=== PATIENT | female | born 1930 | race Caucasian/White ===

== ENCOUNTER 2016-11-27 11:26 | Inpatient (IN) | payer OTHER, MEDICARE ==
[~2016-11-27] VITALS: Ht 154.9 cm; Wt 60.8 kg
[2016-11-27] VITALS (42 sets, daily range): BP systolic 118–188; BP diastolic 36–104; PULSE 74–148; RESP 16–30; TEMP 98–98.1; O2SAT 84–100
[~2016-11-27 11:26] MED LIST: ALBU17I INH; ATOR40TA49 PO; NIFE1TAB85 PO; WARF5 PO
[2016-11-27] MEDS ORDERED: SODIUM CHLORIDE 0.9% FLUSH 5 ML FLUSH IVF PRN (11:45)
--- NOTE | 2016-11-27 11:48 | PD ---
HPI Chief Complaint: Fall Time Seen by Provider: 11:29 Travel History International Travel<30 days: No Contact w/Intl Traveler<30days: No Traveled to known affect area: No History of Present Illness HPI 85yo F with PMH of HTN, HLD, Colon CA, CVA presents to the ED with multiple falls. Pt has dementia and is AAOx2 and denies any complaints or falls. As per EVAC, she was noted to have cough and bilateral lower ext swelling. Pt had been admitted 06/2015 for small occipital stroke. Denies any fever, cough, chest pain, sob, n/v, abdominal pain, weakness or numbness. PFSH Past Medical History Alzheimer's Disease: Yes Arthritis: Yes Asthma: No Autoimmune Disease: No Blood Disorders: Yes (HX BLOOD CLOTS) Cancer: Yes (COLON) Cardiovascular Problems: Yes High Cholesterol: Yes Chest Pain: No Congestive Heart Failure: No COPD: No Cerebrovascular Accident: No Deep Vein Thrombosis: Yes Endocrine: No Genitourinary: No Headaches: Yes Hypertension: Yes Immune Disorder: No Implanted Vascular Access Dvce: Yes Musculoskeletal: Yes Neurologic: Yes Psychiatric: No Reproductive: No Respiratory: Yes (COUGH) Immunizations Current: Yes Migraines: No Seizures: No Sleep Apnea: No Tetanus Vaccination: Unknown Influenza Vaccination: Yes ?: Not Past Surgical History Abdominal Surgery: Yes (COLON RESECTION) Cardiac Surgery: No Ear Surgery: No Endocrine Surgery: No Eye Surgery: No Genitourinary Surgery: No Gynecologic Surgery: Yes (FIBROIDS) Joint Replacement: Yes (LTK) Oral Surgery: No Thoracic Surgery: No Other Surgery: Yes Social History Alcohol Use: No Tobacco Use: No Substance Use: No Allergies-Medications (Allergen,Severity, Reaction): Coded Allergies: Dilaudid (Verified Allergy, Intermediate, UNKNOWN, 06/17/15) Penicillin (Verified Allergy, Intermediate, UNKNOWN, 06/17/15) Reported Meds & Prescriptions Reported Meds & Active Scripts Active Nifedipine Er (Nifedipine) 30 Mg Tabcr 30 Mg PO DAILY 30 Days Lipitor 40 Mg Tab (Atorvastatin Calcium) 40 Mg Tab 80 Mg PO DAILY Coumadin (Warfarin Sod) 5 Mg Tab 5 Mg PO DAILY@16 Proventil Mdi (Albuterol Sulfate) 17 Gm Aero 1 Puff INH Q4 PRN Review of Systems Except as stated in HPI: all other systems reviewed are Neg Physical Exam Narrative GENERAL: 85yo F in mild distress. SKIN: Warm and dry. HEAD: Atraumatic. Normocephalic. EYES: Pupils equal and round. No scleral icterus. No injection or drainage. ENT: No nasal bleeding or discharge. Mucous membranes pink and moist. NECK: Trachea midline. No JVD. CARDIOVASCULAR: Regular rate and rhythm. No murmur appreciated. RESPIRATORY: + accessory muscle use. Crackles bilaterally, right more than left. GASTROINTESTINAL: Abdomen soft, non-tender, nondistended. MUSCULOSKELETAL: No obvious deformities. No clubbing. No cyanosis. +Bilateral lower ext pitting edema. DP 2+. NEUROLOGICAL: Awake and alert. No obvious cranial nerve deficits. Motor grossly within normal limits. Normal speech. Data Data Last Documented VS Vital Signs Date Time Temp Pulse Resp B/P Pulse Ox O2 Delivery O2 Flow Rate FiO2 11/27/16 13:47 99 18 188/90 100 Nasal Cannula 4 11/27/16 13:40 30 11/27/16 11:34 98.0 Orders Complete Blood Count With Diff (11/27/16 11:35) Basic Metabolic Panel (Bmp) (11/27/16 11:35) B-Type Natriuretic Peptide (11/27/16 11:35) Act Partial Throm Time (Ptt) (11/27/16 11:35) Prothrombin Time / Inr (Pt) (11/27/16 11:35) Ckmb (Isoenzyme) Profile (11/27/16 11:35) Troponin I (11/27/16 11:35) Urinalysis - C+S If Indicated (11/27/16 11:35) Iv Access Insert/Monitor (11/27/16 11:35) Electrocardiogram (11/27/16 11:35) Ecg Monitoring (11/27/16 11:35) Oximetry (11/27/16 11:35) Oxygen Administration (11/27/16 11:35) Chest, Single Ap (11/27/16 11:35) Sodium Chloride 0.9% Flush (Ns Flush) (11/27/16 11:45) Cath For Specimen (11/27/16 12:31) Urine Culture (11/27/16 12:26) CKMB (11/27/16 12:39) CKMB% (11/27/16 12:39) Furosemide Inj (Lasix Inj) (11/27/16 13:30) Ciprofloxacin 400 Mg Premix (Cipro 400 M (11/27/16 13:30) Nitroglycerin-Dextrose Inj (Nitroglyceri (11/27/16 13:45) Arterial Blood Gas (Abg) (11/27/16 ) Admit Order (Ed Use Only) (11/27/16 13:54) Labs Laboratory Tests Test 11/27/16 11/27/16 12:26 12:39 Urine Collection Type CATH Urine Color YELLOW Urine Turbidity SLIGHT Urine pH 6.0 Urine Specific [place] 1.025 Urine Protein 300 OR GREATER mg/dL Urine Glucose (UA) NEG mg/dL Urine Ketones TRACE mg/dL Urine Occult Blood MOD Urine Nitrite NEG Urine Bilirubin NEG Urine Leukocyte Esterase NEG Urine RBC 10-14 /hpf Urine WBC 0-2 /hpf Urine Squamous Epithelial 0-5 /hpf Cells Urine Amorphous Sediment FEW Urine Bacteria OCC /hpf Microscopic Urinalysis Comment CATH-CULTURE IND Urine Collection Time 12:26 White Blood Count 12.9 TH/MM3 Red Blood Count 4.24 MIL/MM3 Hemoglobin 12.1 GM/DL Hematocrit 36.3 % Mean Corpuscular Volume 85.7 FL Mean Corpuscular Hemoglobin 28.6 PG Mean Corpuscular Hemoglobin 33.4 % Concent Red Cell Distribution Width 14.3 % Platelet Count 182 TH/MM3 Mean Platelet Volume 8.8 FL Neutrophils (%) (Auto) 89.4 % Lymphocytes (%) (Auto) 3.7 % Monocytes (%) (Auto) 6.4 % Eosinophils (%) (Auto) 0.0 % Basophils (%) (Auto) 0.5 % Neutrophils # (Auto) 11.5 TH/MM3 Lymphocytes # (Auto) 0.5 TH/MM3 Monocytes # (Auto) 0.8 TH/MM3 Eosinophils # (Auto) 0.0 TH/MM3 Basophils # (Auto) 0.1 TH/MM3 CBC Comment DIFF FINAL Differential Comment Prothrombin Time 12.7 SEC Prothromb Time International 1.1 RATIO Ratio Activated Partial 25.9 SEC Thromboplast Time Sodium Level 145 MEQ/L Potassium Level 4.4 MEQ/L Chloride Level 108 MEQ/L Carbon Dioxide Level 26.2 MEQ/L Anion Gap 11 MEQ/L Blood Urea Nitrogen 46 MG/DL Creatinine 1.60 MG/DL Estimat Glomerular Filtration 30 ML/MIN Rate Random Glucose 101 MG/DL Calcium Level 9.3 MG/DL Total Creatine Kinase 106 U/L Creatine Kinase MB 2.1 NG/ML Troponin I 0.10 NG/ML B-Type Natriuretic Peptide 2329 PG/ML MDM Medical Decision Making Medical Screen Exam Complete: Yes Emergency Medical Condition: Yes Interpretation(s) EKG: NSR 82bpm. +PACs. Normal axis. TWI v3. Differential Diagnosis CHF exacerbation vs. ACS vs. PNA Narrative Course 85yo F here with cough and bilateral lower ext edema. Pt initially had BP 144/ 93 at triage and O2sat 84% on RA. Pt is saturating at 100% on 4L NC. Pt denies any sob or chest pain but appears to use accessory muscles for breathing. Labs reviewed, mild leukocytosis at 12.9. BNP is elevated at 2329. Troponin mildly elevated at 0.10 likely secondary to CHF. Creatinine elevated at 1.60. UA showed occasional bacteria. Pt given cipro. CXR showed cardiomegaly with findings of congestive heart failure. Bilateral effusions. Pt given lasix 40mg IV and placed on BIPAP 10/5 at 40% and appears more comfortable. I recheck pt's BP with a smaller cuff and it is 219/103 so started her on nitroglycerin drip. Pt's son Mr. Juan Carlos Meyers came later and gave me the history that she has been falling frequently and sometimes hits her head. They did not bring her to hospital for evaluation after the falls. States she fell today but unsure if she hit her head or not since she was with the other son. Pt is AAOx2 and at her baseline. No focal neurologic deficit, but given this new information, I ordered CT brain. His number is [phone]. Pt evaluated at bedside and doing better on BIPAP. Pt looks more comfortable. BP is now 146/80. Discussed with Dr. Torres who accepted the patient and consulted tool tender. Discussed with Dr. Escudero tool tender and he recommended to give another lasix 20mg IV. Pt had 500cc of urine after initial lasix 40mg IV. Pt taken off BIPAP and placed on 4 L NC and saturating at 97%. Pt appears less tachypneic. Pt will obtain CT brain on her way up to ICU bed. Discussed with son and daughter at bedside, pt is full code. Critical Care Narrative Aggregate critical care time was 60 minutes. Time to perform other separately billable procedures was not included in the critical care time. My time did not include minutes spent treating any other patients simultaneously or on activities that did not directly contribute to the patient's treatment. The services I provided to this patient were to treat and/or prevent clinically significant deterioration that could result in: cardiovascular collapse or . I provided critical care services requiring my management, as noted below: Chart data review, documentation time, medication orders and management, vital sign assessments/reviewing monitor data, ordering and reviewing lab tests, ordering and interpreting/reviewing x-rays and diagnostic studies, care of the patient and discussion of the patient with the admitting physicians. Diagnosis Primary Impression: CHF exacerbation Qualified Code: I50.9 - Acute on chronic congestive heart failure, unspecified congestive heart failure type Admitting Information Admitting Physician Requests: Alexandria Kilgore DO Nov 27, 2016 11:48
--- NOTE | 2016-11-27 11:54 | RADHPO ---
EXAM DATE/TIME: 11/27/2016 11:37 [facility] COMPARISON: CHEST SINGLE AP, June 17, 2015, 11:37. INDICATIONS : Cough MEDICAL HISTORY : Hypertension. Deep venous thrombosis. Carcinoma, colon. SURGICAL HISTORY : None. ENCOUNTER: Initial ACUITY: 1 week PAIN SCORE: 0/10 LOCATION: Bilateral chest FINDINGS: There are findings of congestive heart failure with interstitial and alveolar opacity bilaterally. Th ere is prominence of the aortic knob is with calcification characteristic of atherosclerotic vascular disease. Moderate size bilateral pleural effusions are present right greater than left. CONCLUSION: 1. Cardiomegaly and findings of congestive heart failure. 2. Bilateral effusions. Juan Carlos Macias MD on November 27, 2016 at 11:53 Board Certified Radiologist. This report was verified electronically.
[2016-11-27 12:32] LABS: GLUCOSE,URINE NEG (NEG); KETONE, URINE TRACE mg/dL (NEG); NITRITE,URINE NEG (NEG)
[2016-11-27 12:36] LABS: BLOOD, URINE MOD (NEG)
[2016-11-27 12:37] LABS: METHOD OF COLLECTION CATH; URINE COLOR YELLOW (YELLW/STRAW)
[2016-11-27 12:38] LABS: BACTERIA, URINE OCC /hpf; COMMENT (UR) CATH-CULTURE IND; CULTURE IF INDICATED CATH CULTURE IND; SQUAMOUS EPITHELIAL CELL URINE 0-5 /hpf (0-5); WBC, URINE 0-2 /hpf (0-5)
[2016-11-27 12:52] LABS: AUTOMATED NEUTROPHIL # 11.5 TH/MM3 (1.8-7.7); BASOPHIL # 0.1 TH/MM3 (0-0.2); BASOPHIL % 0.5 % (0.0-2.0); HEMATOCRIT 36.3 % (35.0-46.0); HEMO FLAGS DIFF FINAL; LYMPH % 3.7 % (9.0-44.0); LYMPHOCYTE # 0.5 TH/MM3 (1.0-4.8); MEAN CELL VOLUME 85.7 FL (80.0-100.0); MEAN CORPUSCULAR HEMOGLOBIN 28.6 PG (27.0-34.0); MEAN CORPUSCULAR HGB CONC 33.4 % (32.0-36.0); MONO % 6.4 % (0.0-8.0); NEUT % 89.4 % (16.0-70.0); PLATELET COUNT 182 TH/MM3 (150-450); RED BLOOD COUNT 4.24 MIL/MM3 (4.00-5.30); RED CELL DISTRIBUTION WIDTH 14.3 % (11.6-17.2); WHITE BLOOD COUNT 12.9 TH/MM3 (4.0-11.0)
[2016-11-27 13:06] LABS: CHLORIDE 108 MEQ/L (98-107); POTASSIUM 4.4 MEQ/L (3.5-5.1); SODIUM (NA) 145 MEQ/L (136-145)
[2016-11-27 13:10] LABS: ANION GAP 11 MEQ/L (5-15); BICARBONATE 26.2 MEQ/L (21.0-32.0); BLOOD UREA NITROGEN 46 MG/DL (7-18)
[2016-11-27 13:14] LABS: APTT (PATIENT) 25.9 SEC (24.3-30.1); GLOMERULAR FILTRATION RATE 30 ML/MIN (>89); INTERNATIONAL NORMALIZED RATIO 1.1 RATIO; PROTHROMBIN TIME - PATIENT 12.7 SEC (9.8-11.6)
[2016-11-27 13:17] LABS: CREATINE KINASE 106 U/L (26-192)
[2016-11-27 13:29] LABS: CKMB 2.1 NG/ML (0.5-3.6)
[2016-11-27] MEDS ORDERED: CIPROFLOXACIN 400 MG PREMIX 200 ML IV ONE (13:30)
[2016-11-27] MEDS ORDERED: FUROSEMIDE 40 MG/4 ML VIAL IV PUSH ONE (13:30)
[2016-11-27] MEDS ORDERED: NITROGLYCERIN-DEXTROSE INJ 250 ML IV ONE (13:45)
[2016-11-27 14:12] LABS: BLOOD GAS BASE EXCESS -1.6 mmol/L (-2-2); BLOOD GAS CARBOXYHEMOGLOBIN 1.9 % (0-4); BLOOD GAS HCO3 22 mmol/L (22-26); BLOOD GAS O2 HGB SATURATION 94 % (90-100); BLOOD GAS OXYGEN CONTENT 15.3 Vol % (12.0-20.0); BLOOD GAS PCO2 34 mmHG (38-42); BLOOD GAS PO2 91 mmHG (61-120); BLOOD GAS TOTAL HGB 11.4 G/DL (12.0-16.0); CRITICAL VALUE NO; OXYGEN DEVICE BIPAP; TEMP CORR TO 98.6
[2016-11-27 14:13] LABS: DRAW SITE RT RADIAL; FIO2 30 %; NUMBER OF ARTERIAL PUNCTURES 1; STAT YES; ULNAR PULSE PRESENT; VENT SETTINGS IPAP 10/EPAP 5
[2016-11-27] MEDS ORDERED: FUROSEMIDE 20 MG/2 ML VIAL IV PUSH ONE (15:45)
--- NOTE | 2016-11-27 16:03 | RADHPO ---
EXAM DATE/TIME: 11/27/2016 15:47 [facility] COMPARISON: CT BRAIN W/O CONTRAST, June 17, 2015, 12:02. INDICATIONS : Multiple falls. RADIATION DOSE: 62.79 CTDIvol (mGy) MEDICAL HISTORY : Cerebrovascular disease. Alzheimer's. Deep venous thrombosis.Colon cancer. Hyp ertension. SURGICAL HISTORY : Colon resection. ENCOUNTER: Initial ACUITY: 4 - 6 days PAIN SCALE: 0/10 LOCATION: cranial TECHNIQUE: Multiple contiguous axial images were obtained of the head. Using automated exposure control and adjustment of the mA and/or kV according to patient size, radiation dose was kept as low as reasonably achievable to obtain optimal diagnostic quality images. FINDINGS: There is marked central and cortical atrophy with dilatation of ventricular and sulcal spaces. There is no parenchymal hemorrhage, acute infarction or mass lesion identified. There are no extra-a xial fluid collections appreciated. The posterior fossa is unremarkable with midline fourth ventricl e. The portion of the orbits and paranasal sinuses visualized are unremarkable. CONCLUSION: Atrophy otherwise negative. Lukasz Higuera MD FACR on November 27, 2016 at 16:01 Board Certified Radiologist. This report was verified electronically.
--- NOTE | 2016-11-27 16:09 | HHI.CCPN ---
Subjective Remarks/Hospital Course D/W Essie Olson and Brian. 85 yo with CHF now improving on BiPAP and diuresis. Now coming off BiPAP per Dr. Olson. Patient stable to be admitted to [facility] in PO ICU. Will not be doing formal consult at this time. Please consult if needed Objective Vital Signs Date Time Temp Pulse Resp B/P Pulse Ox O2 Delivery O2 Flow Rate FiO2 11/27/16 15:18 74 18 146/80 100 BiPAP 11/27/16 13:47 4 11/27/16 13:40 30 11/27/16 11:34 98.0 Result Diagram: 11/27/16 1239 11/27/16 1239 Other Results Laboratory Tests Test 11/27/16 14:08 Blood Gas Puncture Site RT RADIAL Blood Gas Patient Temperature 98.6 Blood Gas HCO3 22 mmol/L (22-26) Blood Gas Base Excess -1.6 mmol/L (-2-2) Blood Gas Oxygen Saturation 94 % (90-100) Arterial Blood pH 7.43 (7.380-7.420) Arterial Blood Partial 34 mmHG (38-42) Pressure CO2 Arterial Blood Partial 91 mmHG Pressure O2 (61-120) Arterial Blood Oxygen Content 15.3 Vol % (12.0-20.0) Arterial Blood 1.9 % (0-4) Carboxyhemoglobin Arterial Blood Methemoglobin 1.0 % (0-2) Blood Gas Hemoglobin 11.4 G/DL (12.0-16.0) Oxygen Delivery Device BIPAP Blood Gas Ventilator Setting IPAP 10/EPAP 5 Blood Gas Inspired Oxygen 30 % Hayley Escudero MD Nov 27, 2016 16:09
--- NOTE | 2016-11-27 17:09 | HHI.HP ---
[facility] Service [facility] Primary Care Physician Pete Mckeon MD Admission Diagnosis CHF exacerbation Diagnoses: Travel History International Travel<30 Days: No Contact w/Intl Traveler <30 Da: No Traveled to Known Affected Are: No History of Present Illness This is a pleasant 85-year-old female with past medical history of dementia, previous stroke who presented to the ER today after falling at home. History is obtained from discussing with the ER physician as well as review of the patient's chart as well as discussing with the patient's daughter Vicki at bedside. The patient apparently has been having frequent falls at home and has been getting more and more weak. She has had decreased by mouth intake. She has chronic pedal edema but this has gotten worse. She has had a dry cough. She requires 2 people to get up and help her walk. The patient does have dementia and is unable to provide other significant history. Apparently in the emergency department she was to and her blood pressure was very high. She was placed on a nitroglycerin drip, and given 40 mg of IV Lasix. O2 sats were low and she was placed on BiPAP but she is now been weaned down to 2 L. She has a Delgadillo catheter and is making clear yellow urine. Chest x-ray is indicative of pulmonary edema. Further review systems is limited due to the patient's dementia. The patient normally lives at home with her adult son and has someone with her 24 7. Daughter Vicki thinks that the son who lives in [place] has power of mergers and acquisitions attorney but she is not sure. Review of Systems ROS Limitations: Poor Historian Constitutional: DENIES: Fever, Chills Respiratory: COMPLAINS OF: Cough, Shortness of breath Cardiovascular: COMPLAINS OF: Dyspnea on Exertion, DENIES: Chest pain Gastrointestinal: DENIES: Black stools, Bloody stools Genitourinary: DENIES: Dysuria Integumentary: DENIES: Rash Neurologic: COMPLAINS OF: Poor Balance, DENIES: Seizures Psychiatric: COMPLAINS OF: Confusion, DENIES: Hallucinations Past Family Social History Past Medical History Dementia Hypertension Hyperlipidemia History CVA History of colon cancer Chronic kidney disease stage III Past Surgical History Left knee replacement Colon resection for colon cancer Reported Medications Allergies Coded Allergies Type Severity Reaction Last Updated Verified Dilaudid Allergy Intermediate UNKNOWN 06/17/15 Yes Penicillin Allergy Intermediate UNKNOWN 06/17/15 Yes Active Scripts Medications Dose Route/Sig Days Date Category Nifedipine Er (Nifedipine) 30 Mg Tabcr 30 Mg PO DAILY 30 06/18/15 Rx Lipitor 40 Mg Tab (Atorvastatin Calcium) 40 Mg Tab 80 Mg PO DAILY 06/18/15 Rx Coumadin (Warfarin Sod) 5 Mg Tab 5 Mg PO DAILY@16 12/05/14 Rx Proventil Mdi (Albuterol Sulfate) 17 Gm Aero 1 Puff INH Q4 PRN 04/29/14 Rx Allergies: Coded Allergies: Dilaudid (Verified Allergy, Intermediate, UNKNOWN, 06/17/15) Penicillin (Verified Allergy, Intermediate, UNKNOWN, 06/17/15) Family History Reviewed, [place] Social History No tobacco Physical Exam Vital Signs Vital Signs Date Time Temp Pulse Resp B/P Pulse Ox O2 Delivery O2 Flow Rate FiO2 11/27/16 15:18 74 18 146/80 100 BiPAP 11/27/16 13:47 99 18 188/90 100 Nasal Cannula 4 11/27/16 13:40 96 30 11/27/16 11:41 16 84 Room Air 11/27/16 11:41 Nasal Cannula 2 11/27/16 11:37 16 84 Room Air 11/27/16 11:34 98.0 109 16 144/93 84 Physical Exam GENERAL: Well-nourished, well-developed patient. SKIN: Warm and dry. HEAD: Normocephalic. EYES: No scleral icterus. No injection or drainage. NECK: Supple, trachea midline. No JVD or lymphadenopathy. CARDIOVASCULAR: Regular rate and rhythm without murmurs, gallops, or rubs. RESPIRATORY: Breath sounds equal bilaterally. nonlabored breathing on 2 L NC. GASTROINTESTINAL: Abdomen soft, non-tender, nondistended. EXTREMITIES: 1+ pitting pedal edema. NEUROLOGICAL: Awake, alert, and oriented x 3. Non-focal. Laboratory Laboratory Tests Test 11/27/16 11/27/16 11/27/16 12:26 12:39 14:08 Urine Collection Type CATH Urine Color YELLOW Urine Turbidity SLIGHT Urine pH 6.0 Urine Specific [place] 1.025 Urine Protein 300 OR GREATER Urine Glucose (UA) NEG Urine Ketones TRACE Urine Occult Blood MOD Urine Nitrite NEG Urine Bilirubin NEG Urine Leukocyte Esterase NEG Urine RBC 10-14 Urine WBC 0-2 Urine Squamous Epithelial 0-5 Cells Urine Amorphous Sediment FEW Urine Bacteria OCC Microscopic Urinalysis Comment CATH-CULTURE IND Urine Collection Time 12:26 White Blood Count 12.9 Red Blood Count 4.24 Hemoglobin 12.1 Hematocrit 36.3 Mean Corpuscular Volume 85.7 Mean Corpuscular Hemoglobin 28.6 Mean Corpuscular Hemoglobin 33.4 Concent Red Cell Distribution Width 14.3 Platelet Count 182 Mean Platelet Volume 8.8 Neutrophils (%) (Auto) 89.4 Lymphocytes (%) (Auto) 3.7 Monocytes (%) (Auto) 6.4 Eosinophils (%) (Auto) 0.0 Basophils (%) (Auto) 0.5 Neutrophils # (Auto) 11.5 Lymphocytes # (Auto) 0.5 Monocytes # (Auto) 0.8 Eosinophils # (Auto) 0.0 Basophils # (Auto) 0.1 CBC Comment DIFF FINAL Differential Comment Prothrombin Time 12.7 Prothromb Time International 1.1 Ratio Activated Partial 25.9 Thromboplast Time Sodium Level 145 Potassium Level 4.4 Chloride Level 108 Carbon Dioxide Level 26.2 Anion Gap 11 Blood Urea Nitrogen 46 Creatinine 1.60 Estimat Glomerular Filtration 30 Rate Random Glucose 101 Calcium Level 9.3 Total Creatine Kinase 106 Creatine Kinase MB 2.1 Troponin I 0.10 B-Type Natriuretic Peptide 2329 Blood Gas Puncture Site RT RADIAL Blood Gas Patient Temperature 98.6 Blood Gas HCO3 22 Blood Gas Base Excess -1.6 Blood Gas Oxygen Saturation 94 Arterial Blood pH 7.43 Arterial Blood Partial 34 Pressure CO2 Arterial Blood Partial 91 Pressure O2 Arterial Blood Oxygen Content 15.3 Arterial Blood 1.9 Carboxyhemoglobin Arterial Blood Methemoglobin 1.0 Blood Gas Hemoglobin 11.4 Oxygen Delivery Device BIPAP Blood Gas Ventilator Setting IPAP 10/EPAP 5 Blood Gas Inspired Oxygen 30 Date/Time Procedure Status Source Growth 11/27/16 12:26 Urine Culture Received Urine Catheterized Urine Pending Result Diagram: 11/27/16 1239 11/27/16 1239 Assessment and Plan Assessment and Plan -Acute CHF exacerbation -hypertensive urgency -RODRIGO due to dehydration -Frequent falls -Dementia -UTI -Previous stroke -Coumadin reported on previous med rec however there is no recent medication history taken. We will continue with nitroglycerin drip. Will hold off on further IV Lasix that she is now down to 2 L nasal cannula. Will monitor urine output via the Delgadillo and monitor in the ICU overnight. Will repeat BMP in the morning to see where she is at with her kidney function. I will asked the nurse to reconcile her home medications and see if she is still taking Coumadin. She is not likely a good Coumadin candidate regardless given her frequent falls. Will treat with Cipro IV for the UTI. DVT prophylaxis with Lovenox. The patient's brother indicated to the ER physician that she was a full code as per my discussion with Dr. Olson. Patient's daughter Sheila grace is unaware if there is any living will or advanced directive. Ct Torres MD Nov 27, 2016 17:09
[2016-11-27] MEDS ORDERED: NALOXONE HCL 0.4 MG/ML AMP IV PRN (17:15)
[2016-11-27] MEDS ORDERED: NITROGLYCERIN-DEXTROSE INJ 250 ML IV SCH (17:15)
[2016-11-27] MEDS ORDERED: BISACODYL 10 MG SUPP PR PRN (17:15)
[2016-11-27] MEDS ORDERED: ONDANSETRON HCL 4 MG/2 ML VIAL IVP PRN (17:15)
[2016-11-27] MEDS ORDERED: SODIUM CHLORIDE 0.9% FLUSH 5 ML FLUSH FLUSH PRN (17:15)
[2016-11-27] MEDS ORDERED: MAGNESIUM HYDROXIDE SUSP 30 ML CUP PO PRN (17:15)
[2016-11-27] MEDS: ENOXAPARIN SODIUM 30 MG/0.3 ML SYRINGE SQ SCH (17:25)
[2016-11-27] MEDS ORDERED: CHLORHEXIDINE GLUCONATE 2 % 1 PACK (2 CLOTHS)(extra cloths) TOP PRN (18:00)
[2016-11-27] MEDS: METOPROLOL TARTRATE 25 MG TAB PO SCH (20:36)
[2016-11-27] MEDS: POTASSIUM CHLORIDE 20 MEQ CONTROLLED RELEASE TAB PO SCH (20:38)
[2016-11-27] MEDS: DOCUSATE SODIUM 100 MG CAP PO SCH (20:48)
[2016-11-27] MEDS: SODIUM CHLORIDE 0.9% FLUSH 5 ML FLUSH IVF SCH (20:48)
[2016-11-27] MEDS ORDERED: SODIUM CHLORIDE 0.9% FLUSH 5 ML FLUSH FLUSH SCH (21:00)
[2016-11-28] VITALS (56 sets, daily range): BP systolic 108–180; BP diastolic 54–111; PULSE 78–146; RESP 19–35; TEMP 97.4–100.7; O2SAT 90–100
[2016-11-28] MEDS ORDERED: METOPROLOL TARTRATE 5 MG/5 ML VIAL IV PUSH ONE (01:45)
[2016-11-28] MEDS: CHLORHEXIDINE GLUCONATE 2 % 1 PACK (2 CLOTHS)(taper/protocol) TOP SCH (04:00)
[2016-11-28] MEDS: CIPROFLOXACIN 200 MG PREMIX 100 ML IV SCH ×2 (05:37→16:15)
[2016-11-28] MEDS: SODIUM CHLORIDE 0.9% FLUSH 5 ML FLUSH IVF PRN ×2 (05:38→16:15)
[2016-11-28 06:32] LABS: POTASSIUM 3.8 MEQ/L (3.5-5.1)
[2016-11-28 07:14] LABS: BICARBONATE 26.6 MEQ/L (21.0-32.0)
[2016-11-28] MEDS: DOCUSATE SODIUM 100 MG CAP PO SCH ×2 (08:44→20:42)
[2016-11-28] MEDS: SODIUM CHLORIDE 0.9% FLUSH 5 ML FLUSH IVF SCH ×2 (08:44→20:58)
[2016-11-28] MEDS: ASPIRIN 81 MG CHEW TAB CHEW SCH (08:44)
[2016-11-28] MEDS: METOPROLOL TARTRATE 25 MG TAB PO SCH ×2 (08:44→20:42)
[2016-11-28] MEDS: POTASSIUM CHLORIDE 20 MEQ CONTROLLED RELEASE TAB PO SCH ×2 (08:44→20:42)
--- NOTE | 2016-11-28 09:17 | RADHPO ---
EXAM DATE/TIME: 11/28/2016 08:46 [facility] COMPARISON: CHEST SINGLE AP, November 27, 2016, 11:37. INDICATIONS : CHF, short of breath MEDICAL HISTORY : Carcinoma, colon. SURGICAL HISTORY : None. ENCOUNTER: Subsequent ACUITY: 1 week PAIN SCORE: 0/10 LOCATION: Bilateral chest FINDINGS: Portable AP view of the chest demonstrates a normal-sized cardiac silhouette with calcification of th e aorta. Calcified right hilar lymph nodes and calcified granuloma in the right lung remain present. There is a moderate-sized right basilar pleural-parenchymal opacity with interstitial opacity bilater ally. No pneumothorax is visualized. CONCLUSION: 1. Increased right-sided pleural-parenchymal opacity consistent with enlarging pleural effusion with associated volume loss and/or consolidation. 2. Mildly increased bilateral interstitial opacities characteristic of pulmonary edema. Kota Lara MD on November 28, 2016 at 9:14 Board Certified Radiologist. This report was verified electronically.
--- NOTE | 2016-11-28 10:06 | HHI.PR ---
Subjective Remarks Patient seen and examined today with Dr. Torres. Patient does have underlying dementia. Patient denies any shortness of breath, difficulty breathing, does have lower extremity edema which appears to be chronic. Patient is off of nitro drip at this time. Blood pressure has been stabilized. Objective Vitals Vital Signs Date Time Temp Pulse Resp B/P Pulse Ox O2 Delivery O2 Flow Rate FiO2 11/28/16 08:00 95 21 11/28/16 06:01 82 22 130/65 99 11/28/16 05:46 80 19 133/69 100 11/28/16 05:31 78 20 126/61 98 11/28/16 05:16 78 21 130/67 99 11/28/16 05:01 82 20 135/65 100 11/28/16 04:46 78 21 127/62 99 11/28/16 04:31 80 21 124/65 100 11/28/16 04:16 84 24 128/69 100 11/28/16 04:01 97.9 84 23 128/70 100 11/28/16 04:00 84 11/28/16 03:46 86 22 134/69 100 11/28/16 03:31 84 23 125/66 100 11/28/16 03:16 82 23 134/65 100 11/28/16 03:01 120 23 131/84 100 11/28/16 02:46 114 24 136/65 100 11/28/16 02:31 114 24 121/80 100 11/28/16 02:16 114 27 112/83 99 11/28/16 02:16 114 11/28/16 02:01 112 24 149/111 100 11/28/16 02:01 112 11/28/16 01:16 140 28 133/93 96 11/28/16 01:01 146 25 140/80 100 11/28/16 01:00 142 11/28/16 00:46 144 28 135/80 99 11/28/16 00:31 142 25 128/87 99 11/28/16 00:16 146 25 143/82 99 11/28/16 00:01 97.4 146 25 138/77 99 11/28/16 00:00 144 11/27/16 23:46 144 24 146/77 98 11/27/16 23:31 142 26 135/88 97 11/27/16 23:16 144 25 138/85 99 11/27/16 23:01 142 26 128/96 99 17 22:46 136 24 144/81 99 17 22:31 140 26 138/87 98 17 22:16 142 25 136/104 98 17 22:01 132 25 145/83 99 17 22:00 136 17 21:46 128 26 124/88 99 17 21:31 132 30 140/86 98 17 21:16 138 25 141/82 98 17 21:01 148 25 131/77 97 17 20:46 94 24 147/78 94 17 20:45 98 Nasal Cannula 2.00 11/27/16 20:31 94 28 125/91 96 17 20:16 94 23 118/57 97 11/27/16 20:01 98.1 92 21 134/59 97 11/27/16 20:00 81 11/27/16 19:46 90 22 126/50 94 17 19:31 84 25 118/74 97 11/27/16 19:16 100 25 168/95 94 11/27/16 19:01 100 26 140/73 95 17 18:46 96 22 161/79 17 18:31 90 22 157/74 17 18:16 86 24 139/64 11/27/16 18:00 96 11/27/16 18:00 96 22 166/77 17 17:45 86 25 170/36 94 17 17:30 92 23 170/85 93 17 17:15 90 23 154/81 95 17 17:00 86 24 169/81 93 2017 16:45 90 24 148/84 94 2017 16:30 96 24 157/77 95 17 16:28 94 24 166/75 95 17 16:17 88 25 180/90 96 11/27/16 16:10 95 17 16:08 92 28 170/74 17 15:18 74 18 146/80 100 BiPAP 11/27/16 13:47 99 18 188/90 100 Nasal Cannula 4 1/20/17 13:40 96 30 11/27/16 11:41 16 84 Room Air 11/27/16 11:41 Nasal Cannula 2 11/27/16 11:37 16 84 Room Air 11/27/16 11:34 98.0 109 16 144/93 84 I/O 11/27/16 11/27/16 11/27/16 11/28/16 11/28/16 11/28/16 07:00 15:00 23:00 07:00 15:00 23:00 Intake Total 490 ml 538 ml Output Total 900 ml 200 ml Balance -410 ml 338 ml Intake Oral 240 ml 240 ml IV Total 250 ml 298 ml Output Urine Total 900 ml 200 ml # Bowel Movements 0 Result Diagram: 11/27/16 1239 11/28/16 0550 Objective Remarks GENERAL: Well-developed, well-nourished, in no acute distress. alert and orientated to person HEENT: Head is normocephalic without any lesions or masses noted. Facial features are symmetric. Eyes: Extraocular muscles are intact. Conjunctivae were clear. NECK: Supple without any masses. Trachea midline no deviation. No JVD, CARDIAC: Regular rhythm, regular rate. S1/S2 are heard. No murmurs gallops or rubs. LUNGS: Diminished breath sounds noted right lower lung field. Crackles noted bilaterally. No wheeze, rhonchi or rales. No use of accessory muscles on inspiration or expiration. ABDOMEN: Soft, nontender. Nondistended. Bowel sounds heard in all 4 quadrants. No organomegaly or masses. Negative rebound, negative guarding EXTREMITIES: 2+ pitting edema noted bilateral lower extremities, pulses are equal bilaterally. No cyanosis or clubbing NEUROLOGY: Mood and affect appear appropriate. Cranial nerves II through XII grossly intact. Moving all extremities, speech is clear A/P Assessment and Plan Acute congestive heart failure Chest x-ray does show bilateral effusions, congestive pattern. Repeat chest x- ray indicating worsening right pleural opacity consistent with enlarging pleural effusion BNP 2329 Status post Lasix 40 mg IV 1 We'll need to discuss with family if they want us to perform invasive procedure such as thoracentesis Equivocal troponin Likely secondary to hypertensive urgency, congestive heart failure We will repeat troponin level. Hypertensive urgency, resolved Status post nitrate drip Continue metoprolol 25 mg twice daily Acute renal failure superimposed on chronic kidney disease-stage III No improvement with no diuresis Continue monitor renal function Avoid nephrotoxins Urinary tract infection Cipro IV started Monitor culture for appropriate antibiotics Chronic lower extremity edema Compression hose Frequent falls PT consulted for evaluation Dementia Original information was taken from family. We will need to discuss with family patient care History of CVA Patient is on statin at home Medical records indicate that she is on Coumadin, however, patient INR 1.1. Patient at risk for Coumadin use secondary to recurrent and frequent falls. will request nursing staff to obtain accurate medication reconciliation DVT prevention Subcutaneous Lovenox Written by Denny Oliveira PA-C, acting as scribe for Dr. Torres on 11/28/16 at 1500. The documentation accurately reflects the work and decisions performed face-to- face by Dr. Torres on 11/28/16 at 1500. Denny Oliveira Nov 28, 2016 10:05
[2016-11-28 15:53] LABS: INDIRECT BILIRUBIN 0.4 MG/DL (0.0-0.8); TOTAL BILIRUBIN ADULT 0.7 MG/DL (0.2-1.0)
[2016-11-28] MEDS: ENOXAPARIN SODIUM 30 MG/0.3 ML SYRINGE SQ SCH (17:32)
[2016-11-28] MEDS: ACETAMINOPHEN 325 MG TAB PO PRN (20:44)
[2016-11-29] VITALS (29 sets, daily range): BP systolic 117–173; BP diastolic 52–122; PULSE 70–94; RESP 13–38; TEMP 97.8–98.7; O2SAT 93–100
[2016-11-29] MEDS: CIPROFLOXACIN 200 MG PREMIX 100 ML IV SCH ×2 (03:55→15:42)
[2016-11-29] MEDS: CHLORHEXIDINE GLUCONATE 2 % 1 PACK (2 CLOTHS)(taper/protocol) TOP SCH (03:55)
[2016-11-29 06:21] LABS: AUTOMATED NEUTROPHIL # 12.2 TH/MM3 (1.8-7.7); BASOPHIL % 0.3 % (0.0-2.0); EOSINOPHIL # 0.1 TH/MM3 (0-0.4); EOSINOPHIL % 0.4 % (0.0-4.0); HEMATOCRIT 34.3 % (35.0-46.0); LYMPH % 4.4 % (9.0-44.0); LYMPHOCYTE # 0.6 TH/MM3 (1.0-4.8); MEAN CELL VOLUME 86.8 FL (80.0-100.0); MEAN CORPUSCULAR HEMOGLOBIN 28.8 PG (27.0-34.0); MEAN CORPUSCULAR HGB CONC 33.1 % (32.0-36.0); MONO % 6.7 % (0.0-8.0); NEUT % 88.2 % (16.0-70.0); PLATELET COUNT 178 TH/MM3 (150-450); RED BLOOD COUNT 3.95 MIL/MM3 (4.00-5.30); RED CELL DISTRIBUTION WIDTH 14.8 % (11.6-17.2); WHITE BLOOD COUNT 13.8 TH/MM3 (4.0-11.0)
[2016-11-29 06:26] LABS: HEMO FLAGS DIFF FINAL
[2016-11-29 06:33] LABS: BICARBONATE 24.3 MEQ/L (21.0-32.0); MAGNESIUM 2.3 MG/DL (1.5-2.5)
[2016-11-29] MEDS: METOPROLOL TARTRATE 25 MG TAB PO SCH ×2 (08:32→20:36)
[2016-11-29] MEDS: POTASSIUM CHLORIDE 20 MEQ CONTROLLED RELEASE TAB PO SCH ×2 (08:32→20:35)
[2016-11-29] MEDS: ASPIRIN 81 MG CHEW TAB CHEW SCH (08:32)
[2016-11-29] MEDS: DOCUSATE SODIUM 100 MG CAP PO SCH ×2 (08:32→20:35)
[2016-11-29] MEDS: SODIUM CHLORIDE 0.9% FLUSH 5 ML FLUSH IVF SCH ×2 (08:32→20:36)
--- NOTE | 2016-11-29 10:46 | EC ---
Study Study Date:11/28/2016 STUDY CONCLUSIONS SUMMARY - Left ventricle: The cavity size was normal. Wall thickness was normal. Systolic function was mildly to moderately reduced. The estimated ejection fraction was in the range of 40% to 45%. Wall motion was normal; there were no regional wall motion abnormalities. - Aortic valve: Mild to moderate regurgitation. - Mitral valve: Mildly calcified annulus. Moderate to severe regurgitation. - Left atrium: The atrium was mildly dilated. - Tricuspid valve: Moderate-severe regurgitation. - Pulmonary arteries: PA peak pressure: 71mm Hg (S). If LV function is below 40, please consider prescribing an ACEI or ARB or document rationale for non-use. PROCEDURE DATA STUDY STATUS: Elective. Procedure: Transthoracic echocardiography. Image quality was good. Scanning was performed from the parasternal, apical, and subcostal acoustic windows. Study completion: The patient tolerated the procedure well. Transthoracic echocardiography. M-mode, complete 2D, complete spectral Doppler, and color Doppler. Patient status: Inpatient. CARDIAC ANATOMY LEFT VENTRICLE: The cavity size was normal. Wall thickness was normal. Systolic function was mildly to moderately reduced. The estimated ejection fraction was in the range of 40% to 45%. Wall motion was normal; there were no regional wall motion abnormalities. AORTIC VALVE: Trileaflet; mildly thickened, mildly calcified leaflets. Doppler: Transvalvular velocity was within the normal range. There was no stenosis. Mild to moderate regurgitation. Mean gradient: 8mm Hg (S). Peak gradient: 15mm Hg (S). AORTA: Aortic root: The aortic root was normal in size. MITRAL VALVE: mean gradient = 4 mm hg suggestive of mild stenosis Mildly calcified annulus. Doppler: Transvalvular velocity was within the normal range. There was no evidence for stenosis. Moderate to severe regurgitation. Valve area by pressure half-time: 3.38cm^2. Mean gradient: 4mm Hg (D). Peak gradient: 10mm Hg (D). LEFT ATRIUM: The atrium was mildly dilated. RIGHT VENTRICLE: The cavity size was normal. Wall thickness was normal. PULMONIC VALVE: Doppler: Transvalvular velocity was within the normal range. There was no evidence for stenosis. No regurgitation. TRICUSPID VALVE: Structurally normal valve. Doppler: Transvalvular velocity was within the normal range. Moderate-severe regurgitation. PULMONARY ARTERY: The main pulmonary artery was normal-sized. Systolic pressure was within the normal range. RIGHT ATRIUM: The atrium was normal in size. PERICARDIUM: There was no pericardial effusion. SYSTEMIC VEINS: Inferior vena cava: The vessel was normal in size. BASIC MEASUREMENTS ADULT NORMAL Left ventricle LV internal dimension, ED, chordal level, 47.5 mm 43-52 PLAX LV internal dimension, ES, chordal level, 36.3 mm 23-38 PLAX Fractional shortening, chordal level, PLAX *24 % >29 LV posterior wall thickness, ED 9.92 mm IVS/LVPW ratio, ED 1.12 <1.3 Ventricular septum Septal thickness, ED 11.1 mm Aortic valve Leaflet separation 16 mm 15-26 Left atrium Anterior-posterior dimension 38 mm Right ventricle RV internal dimension, ED, PLAX 19.7 mm 19-38 BASIC MEASUREMENTS ADULT NORMAL Aortic valve Leaflet separation 16 mm 15-26 Aorta Root diameter, ED 24 mm 20-37 DOPPLER MEASUREMENTS ADULT NORMAL Main pulmonary artery Pressure, S *71 mm Hg =30 Aortic valve Peak velocity, S 194 cm/s Mean velocity, S 123 cm/s VTI, S 49.7 cm Mean gradient, S 8 mm Hg Peak gradient, S 15 mm Hg Mitral valve Peak E-wave velocity 132 cm/s Peak A-wave velocity 116 cm/s Mean velocity, D 90 cm/s Pressure half-time 65 ms Mean gradient, D 4 mm Hg Peak gradient, D 10 mm Hg Peak E/A ratio 1.1 Valve area, pressure half-time 3.38 cm^2 Maximal regurgitant velocity 671 cm/s Tricuspid valve Regurgitant peak velocity 387 cm/s Peak RV-RA gradient, S 60 mm Hg Maximal regurgitant velocity 387 cm/s Systemic veins Estimated CVP 10 mm Hg Right ventricle RV pressure, S *71 mm Hg <30 LEGEND: Mean values are shown as u=mean value. Asterisk (*) alcaraz values outside specified normal range. Prepared and signed by Ryan Hinton [id number]
[2016-11-29] MEDS: SODIUM CHLORIDE 0.9% FLUSH 5 ML FLUSH IVF PRN ×2 (15:42→17:59)
[2016-11-29] MEDS: ENOXAPARIN SODIUM 30 MG/0.3 ML SYRINGE SQ SCH (17:28)
[2016-11-29] MEDS ORDERED: RESP: ALBUTEROL 2.5 MG/IPRATROPIUM 0.5 MG NEB (PRN) NEB (17:30)
--- NOTE | 2016-11-29 17:35 | HHI.PR ---
Subjective Remarks Patient seen earlier this afternoon and I discussed with ICU nurse Jose. She has had very poor by mouth intake. Low urine output. Patient slightly dyspneic today. Creatinine stable. Objective Vitals Vital Signs Date Time Temp Pulse Resp B/P Pulse Ox O2 Delivery O2 Flow Rate FiO2 11/29/16 16:16 98.3 11/29/16 16:00 82 28 133/65 98 11/29/16 16:00 82 11/29/16 15:00 80 28 151/70 97 11/29/16 14:00 80 29 151/70 97 11/29/16 14:00 80 11/29/16 13:00 76 28 150/62 98 11/29/16 12:49 98.7 11/29/16 12:00 76 28 153/55 98 11/29/16 12:00 76 11/29/16 11:00 72 23 130/52 97 11/29/16 10:00 76 15 132/64 98 11/29/16 10:00 76 11/29/16 09:00 82 28 147/67 94 11/29/16 08:40 93 Nasal Cannula 2.00 11/29/16 08:00 98.0 80 27 156/87 98 11/29/16 08:00 81 11/29/16 08:00 94 Nasal Cannula 2.00 11/29/16 07:00 80 26 144/63 97 11/29/16 06:00 76 24 147/69 97 11/29/16 06:00 76 11/29/16 05:00 82 27 117/74 99 11/29/16 04:00 76 11/29/16 04:00 97.9 76 24 146/65 95 11/29/16 03:00 78 21 159/77 96 11/29/16 03:00 78 11/29/16 02:00 76 11/29/16 02:00 76 20 140/68 98 11/29/16 01:00 78 21 142/63 99 11/29/16 00:00 76 11/29/16 00:00 97.8 76 21 132/58 94 11/28/16 23:00 78 23 127/54 98 11/28/16 22:00 84 11/28/16 22:00 84 28 120/80 95 11/28/16 21:00 98 11/28/16 21:00 98 30 180/72 95 11/28/16 20:15 91 21 11/28/16 20:00 98 11/28/16 20:00 100.7 98 29 169/75 91 11/28/16 19:15 93 Room Air 11/28/16 19:00 102 34 108/63 92 11/28/16 18:00 98 11/28/16 18:00 98 33 165/75 92 I/O 11/28/16 11/28/16 11/28/16 11/29/16 11/29/16 11/29/16 07:00 15:00 23:00 07:00 15:00 23:00 Intake Total 538 ml 480 ml 355 ml 275 ml 320 ml Output Total 200 ml 150 ml 200 ml 200 ml 175 ml Balance 338 ml 330 ml 155 ml 75 ml 145 ml Intake Oral 240 ml 480 ml 240 ml 120 ml 320 ml IV Total 298 ml 115 ml 155 ml Output Urine Total 200 ml 150 ml 200 ml 200 ml 175 ml # Voids 1 # Bowel Movements 0 0 1 1 Result Diagram: 11/29/1653911/29/16539 Objective Remarks GENERAL: Well-nourished, well-developed pleasant elderly female patient. SKIN: Warm and dry. HEAD: Normocephalic. EYES: No scleral icterus. No injection or drainage. NECK: Supple, trachea midline. No JVD or lymphadenopathy. CARDIOVASCULAR: Regular rate and rhythm without murmurs, gallops, or rubs. RESPIRATORY: Breath sounds equal bilaterally. Breathing mildly increased with faint crackles. GASTROINTESTINAL: Abdomen soft, non-tender, nondistended. EXTREMITIES: No cyanosis, or edema. NEUROLOGICAL: Awake, alert, oriented to self. A/P Assessment and Plan Acute congestive heart failure Chest x-ray does show bilateral effusions, congestive pattern. Repeat chest x- ray indicating worsening right pleural opacity consistent with enlarging pleural effusion BNP 2329 Status post Lasix 40 mg IV 1 I discussed in detail with the patient's son Juan Carlos who has power of overhead cleaner maintainer as well as his sister yesterday. Patient would not want invasive procedure such as thoracentesis -They were agreeable to hospice consult for further information. Per nurse and her hospice did come by and the family is considering hospice care center for tomorrow. -As renal function is stable diuresis with Lasix and albumin. Add duo nebs. Equivocal troponin Likely secondary to hypertensive urgency, congestive heart failure Family not wanting aggressive measures Hypertensive urgency, resolved Status post nitrate drip Continue metoprolol 25 mg twice daily Acute renal failure versus chronic kidney disease-stage III No improvement with no diuresis - this may be her baseline creatinine now. Continue monitor renal function Avoid nephrotoxins Urinary tract infection Cipro IV started Monitor culture for appropriate antibiotics Chronic lower extremity edema Compression hose Frequent falls PT consulted for evaluation Dementia History of CVA Patient is on statin at home Medical records indicate that she is on Coumadin, however, patient INR 1.1. Patient at risk for Coumadin use secondary to recurrent and frequent falls. Not a good candidate. will request nursing staff to obtain accurate medication reconciliation DVT prevention Subcutaneous Lovenox CODE STATUS is probably DO NOT RESUSCITATE. The patient's son Juan Carlos essentially wants her to be DO NOT RESUSCITATE however would not give me a full commitment to that yesterday because he wanted to talk to his sister first. Discharge Planning Hospice versus home with home health care as per my previous discussion with family Ct Torres MD Nov 29, 2016 17:35
[2016-11-29] MEDS: ALBUMIN HUMAN 25% 12.5 GM/50 ML BAGP IV SCH (17:40)
[2016-11-29] MEDS: FUROSEMIDE 20 MG/2 ML VIAL IV PUSH SCH (17:59)
[2016-11-29] MEDS ORDERED: NIFE30TA61 PO (18:15)
[2016-11-29] MEDS ORDERED: LIPI80TA PO (18:15)
[2016-11-29] MEDS ORDERED: VENTAER INH (18:15)
[2016-11-29] MEDS ORDERED: WARF-23 PO (18:15)
[2016-11-29] MEDS: RESP: ALBUTEROL 2.5 MG/IPRATROPIUM 0.5 MG NEB (SCH) NEB (19:13)
[2016-11-29] MEDS: ACETAMINOPHEN 325 MG TAB PO PRN (20:36)
[2016-11-30] VITALS (22 sets, daily range): BP systolic 127–194; BP diastolic 51–92; PULSE 70–90; RESP 8–34; TEMP 97.3–99.2; O2SAT 93–99
[2016-11-30] MEDS: CHLORHEXIDINE GLUCONATE 2 % 1 PACK (2 CLOTHS)(taper/protocol) TOP SCH (04:00)
[2016-11-30] MEDS: CIPROFLOXACIN 200 MG PREMIX 100 ML IV SCH (04:46)
[2016-11-30 06:02] LABS: POTASSIUM 4.6 MEQ/L (3.5-5.1)
[2016-11-30 06:08] LABS: BICARBONATE 26.2 MEQ/L (21.0-32.0)
[2016-11-30] MEDS: RESP: ALBUTEROL 2.5 MG/IPRATROPIUM 0.5 MG NEB (SCH) NEB ×2 (07:16→11:17)
[2016-11-30] MEDS: ALBUMIN HUMAN 25% 12.5 GM/50 ML BAGP IV SCH (08:57)
[2016-11-30] MEDS: SODIUM CHLORIDE 0.9% FLUSH 5 ML FLUSH IVF SCH (08:57)
[2016-11-30] MEDS: POTASSIUM CHLORIDE 20 MEQ CONTROLLED RELEASE TAB PO SCH (09:00)
[2016-11-30] MEDS: DOCUSATE SODIUM 100 MG CAP PO SCH (09:00)
[2016-11-30] MEDS: METOPROLOL TARTRATE 25 MG TAB PO SCH (09:00)
[2016-11-30] MEDS: ASPIRIN 81 MG CHEW TAB CHEW SCH (09:00)
[2016-11-30] MEDS: FUROSEMIDE 20 MG/2 ML VIAL IV PUSH SCH (09:00)
[2016-11-30] MEDS ORDERED: CIPR250T52 PO (12:52)
[2016-11-30] MEDS ORDERED: IPRASOL NEB ×2 (12:52)
[2016-11-30] MEDS ORDERED: METO25TA3 PO (12:52)
[2016-11-30] MEDS ORDERED: POTA20TA5 PO (12:52)
[2016-11-30] MEDS ORDERED: FURO1TAB60 PO (12:52)
--- NOTE | 2016-11-30 12:55 | HHI.DS ---
Discharge Summary Admission Date Nov 27, 2016 at 13:55 Discharge Date: Nov 30, 2016 Admitting Diagnosis CHF exacerbation (1) Chronic kidney disease, stage III (moderate) ICD Code: N18.3 (2) CHF exacerbation ICD Code: I50.9 Procedures None Brief History - From Admission This is a pleasant 85-year-old female with past medical history of dementia, previous stroke who presented to the ER today after falling at home. History is obtained from discussing with the ER physician as well as review of the patient's chart as well as discussing with the patient's daughter Vicki at bedside. The patient apparently has been having frequent falls at home and has been getting more and more weak. She has had decreased by mouth intake. She has chronic pedal edema but this has gotten worse. She has had a dry cough. She requires 2 people to get up and help her walk. The patient does have dementia and is unable to provide other significant history. Apparently in the emergency department she was to and her blood pressure was very high. She was placed on a nitroglycerin drip, and given 40 mg of IV Lasix. O2 sats were low and she was placed on BiPAP but she is now been weaned down to 2 L. She has a Delgadillo catheter and is making clear yellow urine. Chest x-ray is indicative of pulmonary edema. Further review systems is limited due to the patient's dementia. The patient normally lives at home with her adult son and has someone with her 24 7. Daughter Vicki thinks that the son who lives in [place] has power of managing attorney but she is not sure. CBC/BMP: 11/29/16 0540 11/30/16 0505 Significant Findings Laboratory Tests Test 11/27/16 11/28/16 11/29/16 11/30/16 14:08 05:50 05:40 05:05 Arterial Blood pH 7.43 (7.380-7.420) Arterial Blood Partial 34 mmHG (38-42) Pressure CO2 Blood Gas Hemoglobin 11.4 G/DL (12.0-16.0) Blood Urea Nitrogen 47 MG/DL (7-18) 51 MG/DL (7-18) 45 MG/DL (7-18) Creatinine 1.60 MG/DL 1.60 MG/DL 1.40 MG/DL (0.50-1.00) (0.50-1.00) (0.50-1.00) Estimat Glomerular Filtration 30 ML/MIN (>89) 30 ML/MIN (>89) 36 ML/MIN (>89) Rate Calcium Level 8.0 MG/DL 8.4 MG/DL 8.0 MG/DL (8.5-10.1) (8.5-10.1) (8.5-10.1) Direct Bilirubin 0.3 MG/DL (0.0-0.2) Alkaline Phosphatase 139 U/L (45-117) Troponin I 0.13 NG/ML (0.02-0.05) Total Protein 6.0 GM/DL (6.4-8.2) Albumin 2.1 GM/DL (3.4-5.0) White Blood Count 13.8 TH/MM3 (4.0-11.0) Red Blood Count 3.95 MIL/MM3 (4.00-5.30) Hemoglobin 11.4 GM/DL (11.6-15.3) Hematocrit 34.3 % (35.0-46.0) Neutrophils (%) (Auto) 88.2 % (16.0-70.0) Lymphocytes (%) (Auto) 4.4 % (9.0-44.0) Neutrophils # (Auto) 12.2 TH/MM3 (1.8-7.7) Lymphocytes # (Auto) 0.6 TH/MM3 (1.0-4.8) Random Glucose 117 MG/DL (74-106) Chloride Level 108 MEQ/L (98-107) PE at Discharge GENERAL: Well-nourished, well-developed pleasant elderly female patient. SKIN: Warm and dry. HEAD: Normocephalic. EYES: No scleral icterus. No injection or drainage. NECK: Supple, trachea midline. No JVD or lymphadenopathy. CARDIOVASCULAR: Regular rate and rhythm without murmurs, gallops, or rubs. RESPIRATORY: Breath sounds equal bilaterally. Breathing mildly increased with faint crackles. GASTROINTESTINAL: Abdomen soft, non-tender, nondistended. EXTREMITIES: No cyanosis, or edema. NEUROLOGICAL: Awake, alert, oriented to self. Hospital Course The patient was admitted, weaned off nitroglycerin drip, and diuresed. She remained dyspneic. She had poor PO intake. Due to her decline, hospice was consulted. Family made the decision for her to be DCed to the hospice care center. Pt Condition on Discharge: Deteriorating Discharge Disposition: Hospice/Med Facility Discharge Time: > 30 minutes Discharge Instructions DIET: Follow Instructions for: As Tolerated, No Restrictions Activities you can perform: Regular-No Restrictions New Medications: Ciprofloxacin (Cipro) 250 Mg Tab 250 MG PO BID Infection #10 Ref 0 TAB Furosemide (Lasix) 40 Mg Tab 40 MG PO BID edema #60 Ref 0 TAB Ipratropium-Albuterol Neb (Duoneb) 0.5-2.5 Mg/3 Ml Neb 1 AMPULE NEB QID NEB Dyspnea #60 ML Ipratropium-Albuterol Neb (Duoneb) 0.5-2.5 Mg/3 Ml Neb 1 AMPULE NEB Q2HR NEB PRN dyspnea #60 ML Metoprolol Tartrate (Metoprolol Tartrate) 25 Mg Tab 25 MG PO BID Blood Pressure Management #60 TAB Potassium Chloride Microencaps (Potassium Chloride Microencaps) 20 Meq Tab 20 MEQ PO BID Electrolyte Replacement #60 TAB Continued Medications: Nifedipine (Nifedipine Er) 30 Mg Tabcr 30 MG PO DAILY HTN Days 30 TAB Discontinued Medications: Albuterol 18 GM Inh (Ventolin Hfa 18 GM Inh) 90 Mcg/Act Aer 1 PUFF INH Q4H PRN SHORTNESS OF BREATH #1 Ref 0 INHALER Albuterol Sulfate (Proventil Mdi) 17 Gm Aero 1 PUFF INH Q4 PRN WHEEZING #1 BOX Atorvastatin (Lipitor 40 Mg Tab) 40 Mg Tab 80 MG PO DAILY Cholesterol Management #30 TAB Atorvastatin (Lipitor) 80 Mg Tab 80 MG PO HS Cholesterol Management #30 Ref 0 TAB Nifedipine ER 24 HR (Nifedipine ER 24 HR) 30 Mg Tab 30 MG PO DAILY #30 Ref 0 TAB Warfarin (Warfarin) 5 Mg Tab 5 MG PO DAILY Blood Clot Prevention #30 Ref 0 TAB Warfarin Sod (Coumadin) 5 Mg Tab 5 MG PO DAILY@16 Prevent Blood Clot #[address] Torres MD Nov 30, 2016 12:55
--- NOTE | 2016-11-30 22:25 | EKG ---
Date Performed: 11/28/2016 Time Performed: 01:18:54 PTAGE: 85 years EKG: Regular supraventricular rhythm Possible left ventricular hypertrophy Inferior/lateral ST-T changes are probably due to ventricular hypertrophy Abnormal ECG PREVIOUS TRACING : 11/27/2016 11.43 Previously normal Sinus rhythm DOCTOR: Francisco Cantu Interpretating Date/Time 11/30/2016 22:23:20
--- NOTE | 2016-11-30 23:53 | EKG ---
Date Performed: 11/27/2016 Time Performed: 11:43:12 PTAGE: 85 years EKG: Sinus rhythm with PAC(s) Possible left ventricular hypertrophy Lateral ST changes are probably due to ventricular hypertrophy Abnormal ECG PREVIOUS TRACING : 06/17/2015 11.07 Compared to prior tracing no significant change DOCTOR: Francisco [email or web address] Interpretating Date/Time 11/30/2016 23:53:07
--- NOTE | 2016-12-23 08:45 | PQ ---
Physician Query Response Document PATIENT: ЮЛИЯ OLIVA : 1930 ADMIT DATE: 11/27/2016 1:55 PM DISCH DATE: 11/30/2016 1:30 PM RESPONDING PROVIDER #: [email or web address] QUERY TEXT: CHF Acuity and Type Congestive Heart Failure is documented in the Medical Record. Please document the type and acuity (in cludes probable or suspected) Such as: Type: -- Systolic -- Diastolic -- Combined -- Other, please specify Acuity: -- Acute -- Chronic -- Acute on chronic -- Other, please specify Also please document the underlying cause of the CHF (includes probable or suspected) Your prompt response is appreciated, please do not hesitate to contact the CDI/Coding Hotline with an y questions, comments and/or concerns you may have at ext. [phone]. The patient's Clinical Indicators include: ACUTE CHF EXACERBATION-H SYSTOLIC FUNCTION MILD TO MODERATELY REDUCED WITH EF 40-45%-ECHO 11/28/16 BNP 2329, ENLARGING PLEURAL EFFUSION, PULMONARY EDEMA-PROG NOTE 11/28/16 Query created by: Shu Marie on 12/08/2016 8:46 AM RESPONSE TEXT: Acute on chronic systolic CHF Electronically signed by: Ct Torres MD 12/23/2016 8:42 AM
== END 2016-11-30 13:30 | disposition hospice, inpatient (51) | DRG 291 ==
LOC: PHED 11:26 → PHEDA 13:55 → PHICU 16:00
PROVIDERS: ADMIT Family Medicine; ATTEND Family Medicine
PROC: 5A09357 Assistance with Respiratory Ventilation, Less than 24 Consecutive Hours, Continuous Positive Airway Pressure (ICD-10-PCS; principal; 2016-11-27)
DX: I13.0 Hypertensive heart and chronic kidney disease with heart failure and stage 1 through stage 4 chronic kidney disease, or unspecified chronic kidney disease (principal); I50.23 Acute on chronic systolic (congestive) heart failure; N17.9 Acute kidney failure, unspecified; E86.0 Dehydration; N39.0 Urinary tract infection, site not specified; G30.9 Alzheimer's disease, unspecified; N18.3 Chronic kidney disease, stage 3 (moderate); F02.80 Dementia in other diseases classified elsewhere, unspecified severity, without behavioral disturbance, psychotic disturbance, mood disturbance, and anxiety; I16.0 Hypertensive urgency; E78.5 Hyperlipidemia, unspecified; R29.6 Repeated falls; W19.XXXA Unspecified fall, initial encounter; Y92.009 Unspecified place in unspecified non-institutional (private) residence as the place of occurrence of the external cause; Z51.5 Encounter for palliative care; Z79.01 Long term (current) use of anticoagulants; Z85.038 Personal history of other malignant neoplasm of large intestine; Z86.73 Personal history of transient ischemic attack (TIA), and cerebral infarction without residual deficits; Z88.0 Allergy status to penicillin; Z88.5 Allergy status to narcotic agent; Z96.652 Presence of left artificial knee joint
CPT/HCPCS: 36600; 70450; 71010; 80048; 80076; 81001; 82550; 82552; 82805; 83735; 83880; 84484; 85025; 85610; 85730; 87086; 87641; 93005; 93306; 94002; 94640; 94664; J0744; J1650; J1940; P9047; P9612